=== PATIENT | male | born 1950 | race Caucasian/White ===

== ENCOUNTER → 2019-04-16 | Outpatient (CLI) | payer MEDICARE ==
[~2019-04-16] MED LIST: SINGULAIR10 MG PO; SYNTHROID88 MCG PO
--- NOTE | 2019-04-16 10:26 | Diagnostic Imaging Report ---
MRI of the right femur without contrast. MRI of the left femur without contrast History: Right and left hamstring muscle strain. Trauma. Pain worse with running. Decreased range of motion Technique: Multiplanar multisequence MRI of the right femur. Multiplanar multisequence MRI of the left femur. Comparison: None Findings: Mild right insertional hamstring tendinosis with minimal adjacent hamstring muscular edema likely due to a mild right and left hamstring muscle strain. No full-thickness tear or retraction. The remainder of the visualized muscles are normal in size, signal intensity and morphology. No acute fracture, subluxation or avascular necrosis. Scattered degenerative change. The visualized neurovascular bundles are intact. Impression: Mild right insertional hamstring tendinosis with minimal adjacent hamstring muscular edema likely due to a mild right and left hamstring muscle strain. No full-thickness tear or retraction. Signed by: Dr. Montana Fernandez M.D. on 04/16/2019 10:23 AM
== END ==
LOC: MRI 07:20
PROVIDERS: ATTEND Orthopaedic Surgery
DX: S76.811A Strain of other specified muscles, fascia and tendons at thigh level, right thigh, initial encounter (principal); S76.812A Strain of other specified muscles, fascia and tendons at thigh level, left thigh, initial encounter

== ENCOUNTER 2019-12-28 11:10 | Inpatient (IN) | payer MEDICARE ==
[~2019-12-28] VITALS: Ht 170.2 cm; Wt 65.8 kg
[~2019-12-28 11:10] MED LIST changes: +AMBIEN5 MG PO
[2019-12-28] MEDS ORDERED: SODIUM CHLORIDE 0.9% 1000ML 1,000 ML IV STA (11:25)
[2019-12-28] MEDS ORDERED: ASPIRIN 81 MG CHEW TAB PO ONE (11:30)
--- OUTSIDE RECORDS SUMMARY | 2019-12-28 12:03 | XMS REPORT | Continuity of Care Document ---
Author Author [facility] t Organization [facility] Address [address] [place] [address] Phone Unavailable Care Team Providers Care Eligibility Supervisor Name Role Phone KAREN IDLL Attphys Unavailable Sean ZULUAGA Attphys Unavailable Problems This patient has no known problems. Allergies, Adverse Reactions, Alerts This patient has no known allergies or adverse reactions. Medications This patient has no known medications. Procedures This patient has no known procedures. Results Test Description Test Time Test Comments Results Result Comments Source CHEST 2 VIEWS 2019-05-16 12:37:00 [facility] [address] [place] [address] Patient Name: JOSUE VENCES MR #: [id number] : 1950 Age/Sex: 69/M Req #: [id number] Adm Physician: Ordered by: KAREN DILL DPM Report #: [id number] Location: OR Room/Bed: Procedure: [id number] DX/CHEST 2 VIEWS Exam Date: 05/16/19 Exam Time: 1110 REPORT STATUS: Signed Chest, PA and lateral. History: Preoperative evaluation for foot surgery. Comparison: None available. Discussion: The cardiomediastinal silhouette and pulmonary vasculature are within normal limits. The lungs are clear without evidence of consolidation or effusion. There are no acute osseous abnormalities. Patient is status post ACDF. IMPRESSION: No acute cardiopulmonary abnormality. Signed by: Jim Milner MD on 05/16/2019 12:38 PM Dictated By: JIM MILENR MD 1238 Transcribed By: KHALIF on 05/16/19 1238 COPY TO: DILLKAREN CAPORashid MRI FEMUR LEFT WO 2019-04-16 09:31:00 [place] [address] Patient Name: JOSUE VENCES MR #: [id number] : 1950 Age/Sex: 68/M Req #: [id number] Adm Physician: Ordered by: LEENA ZULUAGA DO Report #: [id number] Location: MRI Room/Bed: Procedure: [id number] MRI/MRI FEMUR LEFT WO Exam Date: Exam Time: REPORT STATUS: Signed MRI of the right femur without contrast. MRI of the left femur without contrast History: Right and left hamstring muscle strain. Trauma. Pain worse with running. Decreased range of motion Technique: Multiplanar multisequence MRI of the right femur. Multiplanar multisequence MRI of the left femur. Comparison: None Findings: Mild right insertional hamstring tendinosis with minimal adjacent hamstring muscular edema likely due to a mild right and left hamstring muscle strain. No full-thickness tear or retraction. The remainder of the visualized muscles are normal in size, signal intensity and morphology. No acute fracture, subluxation or avascular necrosis. Scattered degenerative change. The visualized neurovascular bundles are intact. Impression: Mild right insertional hamstring tendinosis with minimal adjacent hamstring muscular edema likely due to a mild right and left hamstring muscle strain. No full- thickness tear or retraction. Signed by: Dr. Montana Fernandez M.D. on 04/16/2019 10:23 AM Dictated By: MONTANA FERNANDEZ MD, MD 1023 Transcribed By: KHALIF on 04/16/19 1023 COPY TO: LEENA ZULUAGA DO MRI FEMUR RIGHT WO 2019-04-16 09:31:00 [place] [address] Patient Name: JOSUE VENCES MR #: [id number] : 1950 Age/Sex: 68/M Req #: [id number] Adm Physician: Ordered by: LEENA ZULUAGA DO Report #: [id number] Location: MRI Room/Bed: Procedure: [id number] MRI/MRI FEMUR RIGHT WO Exam Date: Exam Time: REPORT STATUS: Signed MRI of the right femur without contrast. MRI of the left femur without contrast History: Right and left hamstring muscle strain. Trauma. Pain worse with running. Decreased range of motion Technique: Multiplanar multisequence MRI of the right femur. Multiplanar multisequence MRI of the left femur. Comparison: None Findings: Mild right insertional hamstring tendinosis with minimal adjacent hamstring muscular edema likely due to a mild right and left hamstring muscle strain. No full-thickness tear or retraction. The remainder of the visualized muscles are normal in size, signal intensity and morphology. No acute fracture, subluxation or avascular necrosis. Scattered degenerative change. The visualized neurovascular bundles are intact. Impression: Mild right insertional hamstring tendinosis with minimal adjacent hamstring muscular edema likely due to a mild right and left hamstring muscle strain. No full- thickness tear or retraction. Signed by: Dr. Montana Fernandez M.D. on 04/16/2019 10:23 AM Dictated By: MONTANA FERNANDEZ MD, MD 1023 Transcribed By: KHALIF on 04/16/19 1023 COPY TO: LEENA ZULUAGA DO
[2019-12-28 12:11] LABS: BASOPHILS # (AUTO) 0.1 (0.0-0.1); BASOPHILS % 0.5 % (0.0-1.0); EOSINOPHILS # (AUTO) 0.3 (0.0-0.4); EOSINOPHILS % 1.9 % (0.0-6.0); HEMATOCRIT 40.5 % (38.2-49.6); HEMOGLOBIN 13.7 g/dL (14.0-18.0); LYMPHOCYTES # (AUTO) 2.5 (1.0-3.2); LYMPHOCYTES % 16.9 % (18.0-39.1); MEAN CORPUSCULAR HEMOGLOBIN 32.9 pg (28-32); MEAN CORPUSCULAR HGB CONC 33.8 g/dL (31-35); MEAN CORPUSCULAR VOLUME 97.4 fL (81-99); MONOCYTES # (AUTO) 0.8 (0.2-0.8); MONOCYTES % 5.3 % (4.4-11.3); NEUTROPHILS # (AUTO) 10.9 (2.1-6.9); NEUTROPHILS % 74.9 % (38.7-80.0); PLATELET COUNT 253 x10e3/uL (140-360); RED BLOOD COUNT 4.16 x10e6/uL (4.3-5.7); RED CELL DISTRIBUTION WIDTH 12.5 % (11.7-14.4)
[2019-12-28 12:22] LABS: INR 0.91; PROTHROMBIN TIME 12.7 seconds (11.9-14.5)
[2019-12-28 12:23] LABS: PARTIAL THROMBOPLASTIN TIME 25.6 seconds (23.8-35.5)
[2019-12-28 12:35] LABS: ALBUMIN 3.7 g/dL (3.5-5.0); ANION GAP 17.2 mmol/L (8-16); CALCIUM 9.2 mg/dL (8.4-10.2); CREATININE, SERUM 1.77 mg/dL (0.72-1.25); MAGNESIUM 2.6 MG/DL (1.3-2.1); POTASSIUM 4.2 mmol/L (3.5-5.1)
[2019-12-28 12:42] LABS: CREATINE KINASE MB 0.9 ng/mL (0-5.0)
--- NOTE | 2019-12-28 13:10 | Emergency Department Note ---
History of Present Illnes History of Present Illness Chief Complaint: Chest Pain History of Present Illness This is a 69 year old male 30 MIN AGO WHILE GETTING READY TO TAKE A SHOWER HE BEGAN HAVING LEFT SIDE CHEST PAIN, NON-RADIATING, POSITIVE . ON THE WAY HERE HE FELT DIZZY, PASSED OUT IN PASSENGER SEAT. WHEN HE AWOKE, HE FELT BETTER. Historian: Patient Arrival Mode: Car Additional Treatment IT INTERN: NONE Research Intern Required: No Onset (how long ago): minute(s) Location: LEFT CHEST Quality: TIGHT Radiation: Reports non-radiation Severity: severe Onset quality: sudden Timing of current episode: constant Progression: improving Chronicity: new Context: Denies recent illness Relieving factors: none Exacerbating factors: none Associated symptoms: Reports denies other symptoms Treatments prior to arrival: none Past Medical/Family History Physician Review I have reviewed the patient's past medical and family history. Any updates have been documented here. Past Medical History Recent Fever: No Clinical Suspicion of Infectio: No New/Unexplained Change in Ment: No Past Medical History: Hypertension, Hypothyroidism Other Medical History: PROSTATE Other Surgery: CERVICAL C-/ "METAL PLATES" CERVICAL 10/13 Social History Smoking Cessation: Never Smoker Counseling Performed: No Alcohol Use: None Any Illegal Drug Use: No TB Exposure/Symptoms: No Physically hurt or threatened: No Family History Family history of heart diseas: No Other Last Tetanus: [place] Any Pre-Existing Lines (PICC,: No Review of Systems Review of Systems Constitutional: Reports no symptoms EENTM: Reports no symptoms Cardiovascular: Reports as per HPI Respiratory: Reports as per HPI Gastrointestinal: Reports no symptoms Genitourinary: Reports no symptoms Musculoskeletal: Reports no symptoms Integumentary: Reports no symptoms Neurological: Reports no symptoms Psychological: Reports no symptoms Endocrine: Reports no symptoms Hematological/Lymphatic: Reports no symptoms Physical Exam Related Data Allergies: Coded Allergies: Penicillins (Verified Allergy, Unknown, 12/28/19) Triage Vital Signs Vital Signs Date Time Temp Pulse Resp B/P (MAP) Pulse Ox O2 Delivery O2 Flow Rate FiO2 12/28/19 11:18 97.7 59 18 101/71 100 Room Air Vital signs reviewed: Yes Physical Exam CONSTITUTIONAL Constitutional: Present well-developed, Present well-nourished HENT HENT: Present normocephalic, Present atraumatic, Present oropharynx clear/moist, Present nose normal HENT L/R: Present left ext ear normal, Present right ext ear normal EYES Eyes: Reports PERRL, Reports conjunctivae normal NECK Neck: Present ROM normal PULMONARY Pulmonary: Present effort normal, Present breath sounds normal CARDIOVASCULAR Cardiovascular: Present regular rhythm, Present heart sounds normal, Present capillary refill normal, Present normal rate GASTROINTESTINAL Abdominal: Present soft, Present nontender, Present bowel sounds normal GENITOURINARY Genitourinary: Present exam deferred SKIN Skin: Present warm, Present dry MUSCULOSKELETAL Musculoskeletal: Present ROM normal NEUROLOGICAL Neurological: Present alert, Present oriented x 3, Present no gross motor or sensory deficits PSYCHOLOGICAL Psychological: Present mood/affect normal, Present judgement normal Results Laboratory Result Diagram: 12/28/19 1137 12/28/19 1137 Laboratory Laboratory Tests Test 12/28/19 12:44 12/28/19 11:37 White Blood Count 14.54 x10e3/uL (4.8-10.8) Red Blood Count 4.16 x10e6/uL (4.3-5.7) Hemoglobin 13.7 g/dL (14.0-18.0) Hematocrit 40.5 % (38.2-49.6) Mean Corpuscular Volume 97.4 fL (81-99) Mean Corpuscular Hemoglobin 32.9 pg (28-32) Mean Corpuscular Hemoglobin Concent 33.8 g/dL (31-35) Red Cell Distribution Width 12.5 % (11.7-14.4) Platelet Count 253 x10e3/uL (140-360) Neutrophils (%) (Auto) 74.9 % (38.7-80.0) Lymphocytes (%) (Auto) 16.9 % (18.0-39.1) Monocytes (%) (Auto) 5.3 % (4.4-11.3) Eosinophils (%) (Auto) 1.9 % (0.0-6.0) Basophils (%) (Auto) 0.5 % (0.0-1.0) Neutrophils # (Auto) 10.9 (2.1-6.9) Lymphocytes # (Auto) 2.5 (1.0-3.2) Monocytes # (Auto) 0.8 (0.2-0.8) Eosinophils # (Auto) 0.3 (0.0-0.4) Basophils # (Auto) 0.1 (0.0-0.1) Absolute Immature Granulocyte (auto 0.07 x10e3/uL (0-0.1) Prothrombin Time 12.7 seconds (11.9-14.5) Prothromb Time International Ratio 0.91 Activated Partial Thromboplast Time 25.6 seconds (23.8-35.5) Sodium Level 138 mmol/L (136-145) Potassium Level 4.2 mmol/L (3.5-5.1) Chloride Level 99 mmol/L (98-107) Carbon Dioxide Level 26 mmol/L (22-29) Anion Gap 17.2 mmol/L (8-16) Blood Urea Nitrogen 23 mg/dL (7-26) Creatinine 1.77 mg/dL (0.72-1.25) Estimat Glomerular Filtration Rate 38 ML/MIN (60-) BUN/Creatinine Ratio 13 (6-25) Glucose Level 155 mg/dL (74-118) Calcium Level 9.2 mg/dL (8.4-10.2) Magnesium Level 2.6 MG/DL (1.3-2.1) Total Bilirubin 0.7 mg/dL (0.2-1.2) Aspartate Amino Transf (AST/SGOT) 22 IU/L (5-34) Alanine Aminotransferase (ALT/SGPT) 29 IU/L (0-55) Alkaline Phosphatase 60 IU/L (40-150) Creatine Kinase 22 IU/L (30-200) Creatine Kinase MB 0.90 ng/mL (0-5.0) Troponin I 0.051 ng/mL (0-0.300) B-Type Natriuretic Peptide 11.0 pg/mL (0-100) Total Protein 7.3 g/dL (6.5-8.1) Albumin 3.7 g/dL (3.5-5.0) Globulin 3.6 g/dL (2.3-3.5) Albumin/Globulin Ratio 1.0 (0.8-2.0) Lab results reviewed: Yes Imaging Imaging results reviewed: Yes Procedures 12 Lead ECG Interpretation ECG Interpretation : ECG: ECG 1 Research Intern: Interpreted by ED physician Date: Dec 28, 2019 Time: 11:18 Rhythm: sinus bradycardia Rate: bradycardia (85) QRS axis: normal Conduction: right bundle branch block ST segments normal: Yes T wave inversion: aVR, V1 Clinical Impression: abnormal ECG Assessment & Plan Medical Decision Making MDM CP WITH SOB THEN SYNCOPE IN CAR WHEN DROVE HIM HERE - CBC, CHEM, ECG, CARDIACS, CXR, D-DIMER- R/O STEMI/NSTEMI, DYSRHYTHMIA, ELECTROLYTE ABNL, RENAL INSUFF - ADMIT Reassessment Reassessment ADMIT TO Ramiro PISANO, CONSULT TO CHRISTOPHER Assessment & Plan Final Impression: (1) Syncope (2) Chest pain (3) Renal insufficiency Depart Disposition: ADMITTED Last Vital Signs Date Time Temp Pulse Resp B/P (MAP) Pulse Ox O2 Delivery O2 Flow Rate FiO2 12/28/19 11:18 97.7 59 18 101/71 100 Room Air Home Meds Reported Medications Zolpidem Tartrate (AMBIEN) 5 Mg Tablet, 5 MG PO HS, #30 TAB 05/16/19 Levothyroxine Sodium (SYNTHROID) 88 Mcg Tablet, 88 MCG PO 0630, #30 TAB 07/22/16 Medications in the ED Sodium Chloride 1,000 ml @ 0 mls/hr Q0M STAT IV Last administered on 12/28/19at 11:52; Admin Dose 999 MLS/HR; Start 12/28/19 at 11:25; Stop 12/28/19 at 11:28; Status DC Aspirin 81 mg NOW ONCE PO Last administered on 12/28/19at 11:52; Admin Dose 81 MG; Start 12/28/19 at 11:30; Stop 12/28/19 at 11:31; Status DC YOVANY BENNETT MD Dec 28, 2019 13:10
[2019-12-28] MEDS ORDERED: HEPARIN SOD (PORCINE) 1000 UNIT/ML SDV IV ONE (13:15)
[2019-12-28] MEDS ORDERED: SODIUM CHLORIDE 0.9% 50ML 50 ML ONE (13:44)
[2019-12-28] MEDS ORDERED: IOPAMIDOL 370 MG/ML 200 ML INFUS..BTL INJ ONE (13:44)
[2019-12-28] MEDS ORDERED: ONDANSETRON HCL INJ 2MG/ML 2ML 2 MG/ML VIAL IV PRN (14:15)
[2019-12-28] MEDS: SODIUM CHLORIDE 0.9% 1000ML 1,000 ML IV SCH (14:15)
--- OUTSIDE RECORDS SUMMARY | 2019-12-28 14:15 | XMS REPORT | Continuity of Care Document ---
Author Author [facility] t Organization [facility] Address [address] [place] [address] Phone Unavailable Care Team Providers Care Load Builder Name Role Phone KAREN DILL Attphys Unavailable Sean ZULUAGA Attphys Unavailable Problems This patient has no known problems. Allergies, Adverse Reactions, Alerts This patient has no known allergies or adverse reactions. Medications This patient has no known medications. Procedures This patient has no known procedures. Results Test Description Test Time Test Comments Results Result Comments Source CHEST 2 VIEWS 2019-05-16 12:37:00 [facility] [address] [place] [address] Patient Name: JOSUE VENCES MR #: [id number] : 1950 Age/Sex: 69/M Req #: [id number] Adm Physician: Ordered by: KAREN DILL DPM Report #: [id number] Location: OR Room/Bed: Procedure: [id number] DX/CHEST 2 VIEWS Exam Date: 05/16/19 Exam [...] on 05/16/2019 12:38 PM Dictated By: JIM MILNER MD 1238 Transcribed By: KHALIF on 05/16/19 1238 COPY TO: DILLKAREN CAPORashid MRI FEMUR LEFT WO 2019-04-16 09:31:00 [place] [address] Patient Name: JOSUE VENCES MR #: [id number] : 1950 Age/Sex: 68/M Req #: [id number] Adm Physician: Ordered by: LEENA ZULUAGA DO Report #: [id number] Location: MRI Room/Bed: Procedure: [id number] MRI/MRI FEMUR LEFT WO Exam Date: Exam [...] DO MRI FEMUR RIGHT WO 2019-04-16 09:31:00 [place] [address] Patient Name: JOSUE VENCES MR #: [id number] : 1950 Age/Sex: 68/M Req #: [id number] Adm Physician: Ordered by: LEENA ZULUAGA DO Report #: [id number] Location: MRI Room/Bed: Procedure: [id number] MRI/MRI FEMUR RIGHT WO Exam Date: Exam [...]
[2019-12-28] MEDS: HEPARIN 25,000 UNIT 1,200 UNIT in DEXTROSE 5% 250ML 250 ML IV SCH (14:25)
--- NOTE | 2019-12-28 14:32 | Diagnostic Imaging Report ---
CT BRAIN WO HISTORY: Syncope COMPARISON: Head CT 07/22/2016 Technique: Noncontrast axial scans were obtained from skull base to the vertex. Coronal and sagittal reconstructions obtained from the axial data. One or more of the following dose reduction techniques were used: Automated exposure control, adjustment of the mA and/or kV according to patient size, and/or utilization of iterative reconstruction technique. DISCUSSION: Scalp/Skull: Small linear subcutaneous hyperdensity is seen in the right temporal scalp. Otherwise, unremarkable. Brain sulci: Mildly prominent. Ventricles: Compensatory dilatation. Extra-axial spaces: No masses or fluid collections. Carotid siphon calcifications are present. Parenchyma: No abnormal densities. No masses, hemorrhage, or large vascular territory acute infarct. Dural sinuses: No abnormal densities. Sellar/Suprasellar region: Intact. Skull base: Intact. Incidental findings: None. IMPRESSION: 1. No acute intracranial abnormalities. 2. Mild generalized cerebral volume loss. Signed by: Dr. Marty Orozco M.D. on 12/28/2019 2:29 PM
--- NOTE | 2019-12-28 14:35 | Diagnostic Imaging Report ---
EXAM: CT Chest WITH contrast- Pulmonary Embolism Protocol INDICATION: Shortness of breath, syncope COMPARISON: Chest radiograph of 05/16/2019 TECHNIQUE: Chest was scanned utilizing a multidetector helical scanner from the lung apex through the level of the diaphragm after administration of IV contrast. Thin section reconstructions were obtained with special concentration on the pulmonary arteries. Coronal and sagittal reformations were obtained. Pulmonary embolism protocol was performed. IV CONTRAST: 100 cc of Isovue 370 RADIATION DOSE: Total DLP: 549.5 mGy*cm Dose modulation, iterative reconstruction, and/or weight based adjustment of the mA/kV was utilized to reduce the radiation dose to as low as reasonably achievable. COMPLICATIONS: None FINDINGS: LINES/ TUBES: None. PULMONARY ARTERIES: No filling defect is identified within the pulmonary arteries and their branches. Main pulmonary artery measures 2.0 cm in diameter. No right heart strain. LUNGS AND AIRWAYS: The central airways are patent. No focal consolidation or pulmonary edema. PLEURA: The pleural spaces are clear. HEART AND MEDIASTINUM: The thyroid gland is normal. No mediastinal, hilar or axillary lymphadenopathy. The heart is normal in size.. There is no pericardial effusion. Minimal scattered aortic and coronary artery atherosclerotic calcifications. UPPER ABDOMEN: No acute findings in the upper abdomen BONES: No acute osseous injury. No suspicious lytic or blastic lesions. Partially visualized cervical spine fusion hardware. SOFT TISSUES: Unremarkable. IMPRESSION: No acute findings in the thorax. Specifically, no pulmonary embolism. Signed by: Carolynn Tyler MD on 12/28/2019 2:32 PM
[2019-12-28] MEDS: FAMOTIDINE 20 MG/2 ML VIAL IV SCH ×2 (15:00→20:46)
[2019-12-28 15:41] VITALS: BP_SYST 140; BP_SYST 150; BP_DIAS 73; BP_DIAS 83
[2019-12-28] MEDS ORDERED: SYNTHROID100 MCG PO (15:57)
[2019-12-28] MEDS ORDERED: VALIUM2 MG (15:58)
[2019-12-28 16:24] VITALS: BP 150/83
[2019-12-28 16:28] VITALS: BP 140/73
[2019-12-28 16:29] VITALS: BP 140/73
[2019-12-28 16:30] VITALS: BP 140/73
[2019-12-28] MEDS: ACETAMINOPHEN/CODEINE 300MG - 30MG TAB PO PRN ×2 (17:09→23:48)
[2019-12-28 18:31] LABS: CREATINE KINASE MB 2.6 ng/mL (0-5.0)
--- NOTE | 2019-12-28 19:50 | Consultation ---
DATE OF CONSULTATION: Cardiology Consultation REASON FOR CONSULTATION: Chest pain and history of syncope. HISTORY OF PRESENT ILLNESS: This is a 69-year-old man with a history of hypertension and hypothyroidism, who also has cervical disk disease, status post recent surgery, who presented to the emergency department with chest pain. The patient states that chest pain began a few hours prior to admission, located in the lower chest epigastric area without radiation, was moderate in intensity, progressively was persisted, which prompted him to seek medical attention. The patient then on his travel to the hospital, had a syncopal event due to the pain, lasted only a few seconds. No other symptoms of palpitations, shortness of breath, orthopnea, or prior syncopal events. REVIEW OF SYSTEMS: A 12-point review of system was conducted, is negative except as stated above in the HPI. PAST MEDICAL HISTORY: As stated above in the HPI. PAST SURGICAL HISTORY: Neck surgery. PAST FAMILY HISTORY: Noncontributory to current illness. ALLERGIES: PENICILLIN. MEDICATIONS: See medication reconciliation form. SOCIAL HISTORY: No illicit drug, alcohol, or tobacco use. PHYSICAL EXAMINATION: VITAL SIGNS: Temperature is 97.4, heart rate 55, respirations 18, blood pressure is 140/73, and oxygen saturation 98% on room air. GENERAL: Well appearing, well built, no apparent distress. Alert and oriented x3. HEAD: Normocephalic and atraumatic. EYES: The extraocular muscles are intact. Conjunctivae clear. NECK: No JVD. No bruits. CARDIOVASCULAR: Regular rate and rhythm. LUNGS: Clear to auscultation. ABDOMEN: Soft, nontender, and nondistended. EXTREMITIES: No clubbing, cyanosis, or edema. VASCULAR: 2+ pulses. SKIN: Warm, dry, and intact. NEUROLOGIC: No focal deficits noted. LABORATORY DATA: Reviewed. Troponin negative. White blood cell count is 14. Creatinine 1.77. BNP is 11. CT of the chest shows no pulmonary embolism with minimal scattered aortic and coronary artery atherosclerotic calcifications. A 12-lead electrocardiogram showed normal sinus rhythm and right bundle branch block. IMPRESSION: 1. Chest pain. 2. Syncope. 3. Right bundle branch block. 4. Bradycardia. 5. Chronic kidney disease. 6. Leukocytosis. 7. Coronary artery disease. RECOMMENDATIONS: Continue to trend cardiac troponins. His echocardiogram showed preserved left ventricular systolic function. There are no regional wall motion abnormalities. Maintain the patient on telemetry. We will check a carotid artery Doppler. If the patient rules out for myocardial infarction, the patient may be discharged from a cardiovascular standpoint with outpatient followup. DO LUCITA Wu/JAN /[id number]
[2019-12-28 20:00] VITALS: BP 131/68
--- NOTE | 2019-12-28 20:50 | NUR ---
Patients PTT is 102.4. Infusion has been held for 30 minutes and flow rate has been decreased to 10cc/hr. Will recheck PTT in 6 hours.
--- NOTE | 2019-12-28 21:18 | NUR ---
SPOKE WITH MD REGARDING SLEEPING MEDICATIONS. MD STATES CONTINUE SLEEPING MEDICATIONS.
[2019-12-28] MEDS: ZOLPIDEM TARTRATE 5 MG TAB PO SCH (22:23)
[2019-12-29] VITALS (9 sets, daily range): BP systolic 102–131; BP diastolic 65–78
[2019-12-29 02:34] LABS: CREATINE KINASE MB 2.1 ng/mL (0-5.0)
--- NOTE | 2019-12-29 02:40 | NUR ---
Heparin infusion has been resumed at 8.5cc/hr in accordance with heparin protocol. next PTT blood draw is at 0840am. will continue to monitor patient.
--- NOTE | 2019-12-29 02:41 | NUR ---
Patients PTT is 110.4. Infusion held for 30minutes.
[2019-12-29] MEDS: SODIUM CHLORIDE 0.9% 1000ML 1,000 ML IV SCH (03:11)
[2019-12-29] MEDS ORDERED: ALENDRONATE SOD70 MG PO (04:57)
[2019-12-29] MEDS ORDERED: OMEPRAZOLE40 MG PO (04:57)
[2019-12-29] MEDS ORDERED: CYMBALTA30 MG PO (04:57)
[2019-12-29] MEDS ORDERED: ASPIRIN81 MG PO (04:57)
[2019-12-29 05:59] LABS: BASOPHILS # (AUTO) 0.1 (0.0-0.1); BASOPHILS % 0.7 % (0.0-1.0); EOSINOPHILS # (AUTO) 0.3 (0.0-0.4); EOSINOPHILS % 2.4 % (0.0-6.0); HEMATOCRIT 35.2 % (38.2-49.6); HEMOGLOBIN 11.5 g/dL (14.0-18.0); LYMPHOCYTES # (AUTO) 3.7 (1.0-3.2); LYMPHOCYTES % 34.4 % (18.0-39.1); MEAN CORPUSCULAR HEMOGLOBIN 32.4 pg (28-32); MEAN CORPUSCULAR HGB CONC 32.7 g/dL (31-35); MEAN CORPUSCULAR VOLUME 99.2 fL (81-99); MONOCYTES # (AUTO) 0.9 (0.2-0.8); MONOCYTES % 8.7 % (4.4-11.3); NEUTROPHILS # (AUTO) 5.7 (2.1-6.9); NEUTROPHILS % 53.5 % (38.7-80.0); PLATELET COUNT 213 x10e3/uL (140-360); RED BLOOD COUNT 3.55 x10e6/uL (4.3-5.7); RED CELL DISTRIBUTION WIDTH 12.4 % (11.7-14.4)
[2019-12-29 06:27] LABS: ALBUMIN 3.1 g/dL (3.5-5.0); ANION GAP 13.4 mmol/L (8-16); CALCIUM 8.3 mg/dL (8.4-10.2); CHOL/HDL RATIO 4.8 (3.9-4.7); CREATININE, SERUM 1.35 mg/dL (0.72-1.25); POTASSIUM 4.4 mmol/L (3.5-5.1)
[2019-12-29] MEDS: ACETAMINOPHEN/CODEINE 300MG - 30MG TAB PO PRN ×3 (06:27→21:43)
--- NOTE | 2019-12-29 06:29 | NUR ---
patient is resting in bed. bed is in lowest position and call light is within reach.
--- NOTE | 2019-12-29 07:00 | NUR ---
BEDSIDE SHIFT REPORT RECEIVED FROM SKIMMER RN. PT DENIES NEEDS AT THIS TIME.
[2019-12-29] MEDS: FAMOTIDINE 20 MG/2 ML VIAL IV SCH ×2 (08:54→21:43)
[2019-12-29] MEDS: ASPIRIN 81 MG ENTERIC COATED PO SCH (08:55)
[2019-12-29 09:21] LABS: CREATINE KINASE MB 3.4 ng/mL (0-5.0)
--- NOTE | 2019-12-29 09:27 | NUR ---
PTT 106.1 AT THIS TIME. HEPARIN DRIP DECREASED BY 150 UNITS, FROM 850 UNITS TO 700 UNITS.
[2019-12-29] MEDS: ATORVASTATIN 20 MG TAB PO SCH (11:44)
--- NOTE | 2019-12-29 11:47 | History and Physical ---
CHIEF COMPLAINT: Chest pain. HISTORY OF PRESENT ILLNESS: This is a 69-year-old white man, who presents to [facility] with complaints of nonradiating retrosternal chest tightness. The patient states that on the day of admission, he experienced chest tightness as he was entering a shower. The patient states en route to the emergency room, he experienced a brief syncopal episode. The patient states that 3 weeks ago, he underwent a cardiac stress test, which was negative just prior to undergoing cervical spine surgery. The patient underwent successful cervical spine surgery 2 weeks ago. In the emergency room, the patient underwent a CT of the chest, which did not reveal any evidence of pulmonary embolism. The patient also underwent a brain CT in the emergency room, which was unremarkable. However, patient's initial troponin I was elevated at 0.902. Repeat troponin I was 0.565 and the third troponin I this morning was 0.494. The patient denies any chest pain. On admission, the patient's BUN and creatinine were 23 and 1.77 respectively. This morning, BUN and creatinine were 20 and 1.35 respectively. The patient's LDL cholesterol 126 mg/dL with HDL cholesterol 37 mg/dL. The patient's AST and ALT were 20 and 22 respectively. Once again, the patient is chest pain free at this time. A 12-lead EKG revealed right bundle branch block, otherwise unremarkable. The patient was already seen by Cardiology. The patient is currently on intravenous heparin drip. REVIEW OF SYSTEMS: GENERAL: Weight is stable. No fever or chills. HEENT: No headaches. No visual changes. CARDIOVASCULAR/RESPIRATORY: Nonradiating retrosternal chest tightness yesterday that lasts only few minutes. The patient did have a syncopal episode en route to the hospital. No cough. No shortness of breath. GI: No nausea associated with the chest discomfort. : No UTI or BPH symptoms. NEUROMUSCULAR: No limb weakness or numbness. ALLERGIES: PENICILLIN. PAST SURGICAL HISTORY: 1. Cervical spine surgery in 2009. 2. Repeat cervical spine surgery 2 weeks ago. 3. Right foot surgery in May 2019. FAMILY HISTORY: No family history of coronary artery disease. PAST MEDICAL HISTORY: 1. Stage 3 chronic kidney disease. 2. Hypothyroidism. 3. Anxiety disorder. 4. Insomnia. 5. GERD. 6. Osteoporosis. HOME MEDICATIONS: 1. Alendronate 70 mg daily (patient states he is not taking this medication). 2. Aspirin 81 mg daily. 3. Diazepam 2 mg daily as needed for anxiety. 4. Duloxetine 30 mg daily. 5. Levothyroxine 188 mcg daily. 6. Omeprazole 40 mg daily. 7. Zolpidem 5 mg at bedtime for insomnia. SOCIAL HISTORY: He is and lives with his . He is currently retired. No history of tobacco or alcohol use. PHYSICAL EXAMINATION: GENERAL: He is awake, alert, and fully oriented. He is slightly anxious. He is very pleasant and cooperative. VITAL SIGNS: Height 5 feet 7 inches, weight 145 pounds, BMI 22. Blood pressure is 118/70, pulse 52, respiratory rate 18, temperature 97.5, oxygen 100% on room air. INTEGUMENT: Skin is warm and dry. No pallor, jaundice, or diaphoresis. HEENT: Anicteric sclerae. Moist mucous membranes. NECK: Supple. In the posterior neck area, he has evidence of recent cervical spine surgery with Steri-Strips still in place. CARDIOVASCULAR: Distant heart sounds. Bradycardic rate, regular rhythm. LUNGS: No rales, no rhonchi or wheezes. ABDOMEN: Soft. Normal bowel sounds. Nontender. EXTREMITIES: No edema or deformity. NEUROLOGIC: Intact. DIAGNOSES: 1. Hfy-PJ-eumkhiut myocardial infarction. 2. Xowvm-nv-uilysfo renal insufficiency. 3. History of stage 3 chronic kidney disease. 4. Hypothyroidism. 5. Recent cervical spine surgery. 6. Bisphosphonate induced chest pain? PLAN: 1. Stop bisphosphonate therapy. 2. Discuss with Cardiology. 3. Continue intravenous fluids. 4. Follow renal function. 5. Continue oral aspirin. 6. Start statin therapy. 7. The patient will likely undergo a left heart catheterization in near future. I spent 45 minutes in the care of the patient. MD JESSE Morales/JAN /[id number] FCO
[2019-12-29] MEDS ORDERED: HEPARIN 25,000 UNIT DRIP IV ONE (12:25)
[2019-12-29] MEDS: HEPARIN 25,000 UNIT 1,200 UNIT in DEXTROSE 5% 250ML 250 ML IV SCH (12:36)
[2019-12-29] MEDS ORDERED: SODIUM CHLORIDE 0.9% 250ML 250 ML ONE (18:41)
--- NOTE | 2019-12-29 18:59 | Progress Note ---
DATE: Cardiology Progress Note SUBJECTIVE: The patient feels better. Some difficulty in word finding. No further chest pain. OBJECTIVE: VITAL SIGNS: Temperature is 97.5, heart rate ranges from 40 to 52, oxygen saturation is 100% on room air. Blood pressure is 131/74, and respirations are 16. GENERAL: Well-appearing, in no apparent distress. CARDIOVASCULAR: Bradycardic, regular rhythm. No murmurs. LUNGS: Diminished breath at bases. ABDOMEN: Soft, nontender, nondistended. EXTREMITIES: No edema. CARDIOVASCULAR MEDICATIONS: Reviewed. DIAGNOSTIC DATA: Echocardiogram showed preserved left ventricular systolic function. Carotid artery Doppler showed no significant obstructive disease. Telemetry monitoring shows sinus bradycardia. IMPRESSION: 1. Evu-PP-qgomxsyjm myocardial infarction. 2. Right bundle-branch block. 3. Bradycardia. 4. Chronic kidney disease. 5. Coronary artery disease by CT. 6. Syncope. RECOMMENDATIONS: The patient ruled in for myocardial infarction. Continue heparin and aspirin. Maintain the patient on telemetry. The patient continues to have word-finding difficulty. May consider checking MRI of the brain. The patient will require cardiac catheterization prior to discharge. Van Espinosa DO BM/MODL /[id number]
--- NOTE | 2019-12-29 19:20 | NUR ---
received report from day nurse. patient is in bed resting. bed is in lowest position and call light is within reach.
[2019-12-29] MEDS: ZOLPIDEM TARTRATE 5 MG TAB PO SCH (21:43)
[2019-12-30] VITALS (7 sets, daily range): BP systolic 103–131; BP diastolic 55–71
--- NOTE | 2019-12-30 01:58 | NUR ---
Patients PTT is therapeutic for a second time. PTT will be changed to daily in accordance with Heparin infusion policy.
[2019-12-30] MEDS: ACETAMINOPHEN/CODEINE 300MG - 30MG TAB PO PRN ×3 (05:18→22:00)
[2019-12-30 06:11] LABS: BASOPHILS # (AUTO) 0.1 (0.0-0.1); BASOPHILS % 0.7 % (0.0-1.0); EOSINOPHILS # (AUTO) 0.5 (0.0-0.4); EOSINOPHILS % 5.3 % (0.0-6.0); HEMATOCRIT 36.3 % (38.2-49.6); HEMOGLOBIN 11.8 g/dL (14.0-18.0); LYMPHOCYTES # (AUTO) 3.8 (1.0-3.2); LYMPHOCYTES % 42.6 % (18.0-39.1); MEAN CORPUSCULAR HEMOGLOBIN 32.1 pg (28-32); MEAN CORPUSCULAR HGB CONC 32.5 g/dL (31-35); MEAN CORPUSCULAR VOLUME 98.6 fL (81-99); MONOCYTES # (AUTO) 0.7 (0.2-0.8); MONOCYTES % 8.1 % (4.4-11.3); NEUTROPHILS # (AUTO) 3.8 (2.1-6.9); NEUTROPHILS % 43.2 % (38.7-80.0); PLATELET COUNT 212 x10e3/uL (140-360); RED BLOOD COUNT 3.68 x10e6/uL (4.3-5.7); RED CELL DISTRIBUTION WIDTH 12.5 % (11.7-14.4)
[2019-12-30 06:23] LABS: ALBUMIN 3.1 g/dL (3.5-5.0); ANION GAP 13.9 mmol/L (8-16); CALCIUM 8.4 mg/dL (8.4-10.2); CREATININE, SERUM 1.55 mg/dL (0.72-1.25); POTASSIUM 4.9 mmol/L (3.5-5.1)
--- NOTE | 2019-12-30 06:27 | NUR ---
patient is resting in the bed comfortably
[2019-12-30 06:44] LABS: THYROID STIMULATING HORMONE 1.072 uIU/mL (0.350-4.940)
--- NOTE | 2019-12-30 07:00 | NUR ---
BEDSIDE SHIFT REPORT RECEIVED FROM NURSE COMPANION RN. PT DENIES NEEDS AT THIS TIME.
[2019-12-30] MEDS: ASPIRIN 81 MG ENTERIC COATED PO SCH (08:15)
[2019-12-30] MEDS: FAMOTIDINE 20 MG/2 ML VIAL IV SCH ×2 (08:15→21:33)
[2019-12-30] MEDS: SODIUM CHLORIDE 0.9% 1000ML 1,000 ML IV SCH ×2 (11:15→18:42)
--- NOTE | 2019-12-30 11:56 | Progress Note ---
DATE: 12/30/2019 CHIEF COMPLAINT/HISTORY OF PRESENT ILLNESS: This is a 69-year-old white man, whose primary treating diagnosis is yun-YB-buywdzte myocardial infarction and stage 3 chronic kidney disease. This morning, the patient was found to have a BUN and creatinine of 18 and 1.55 respectively. His troponin I yesterday was 0.494. The patient denies any chest pain or tightness. His TSH level is normal of 1.072. The patient's main complaint is his room is too cold. Also yesterday, he was found to have LDL cholesterol 126 mg/dL. Thus, he was started on atorvastatin 20 mg daily, which he is tolerating quite well. REVIEW OF SYSTEMS: As per HPI. PHYSICAL EXAMINATION: GENERAL: He is awake, alert, fluent, in no distress, very pleasant, cooperative with exam. VITAL SIGNS: Blood pressure is 122/62, pulse is 46, respiratory rate 18, temperature 97.8, and oxygen saturation 99% on room air. Height 5 feet 7 inches, weight 145 pounds, BMI 22. INTEGUMENT: Skin is warm and dry. No pallor, jaundice, or diaphoresis. HEENT: Anterior sclerae with moist mucous membranes NECK: Supple. CARDIOVASCULAR: Distant heart sounds. Bradycardic rate, regular rhythm. LUNGS: No rales. No rhonchi. No wheezes. ABDOMEN: Benign. EXTREMITIES: No edema or deformity. NEUROLOGICAL: Intact. DIAGNOSIS: 1. Oxh-RW-hmvaotkj myocardial infarction. 2. Stage 3 chronic kidney disease. 3. Recent cervical spine surgery. 4. Bradycardia. PLAN: 1. I discussed the plan with the patient's adult daughter and the patient. The patient will proceed with tentative left heart catheterization tomorrow. 2. We will start intravenous fluids at 125 mL an hour. 3. Follow renal function and electrolytes. 4. Continue aspirin and atorvastatin. I spent 30 minutes in the care of this patient. MD JESSE Morales/JAN /[id number] FCO
--- NOTE | 2019-12-30 12:47 | Progress Note ---
DATE: Cardiology progress note SUBJECTIVE: The patient is feeling better. Denies any chest pain or shortness of breath. OBJECTIVE: VITAL SIGNS: Temperature is 97.5, heart rate is 50, respirations are 19, blood pressure is 126/71, and oxygen saturation is 100% on room air. GENERAL: No apparent distress. Alert and oriented x3. CARDIOVASCULAR: Regular rhythm, bradycardic. No murmurs. LUNGS: Clear to auscultation. ABDOMEN: Soft, nontender, nondistended. EXTREMITIES: No clubbing, cyanosis, or edema. CARDIOVASCULAR MEDICATIONS: Reviewed include aspirin and heparin drip. LABORATORY DATA: Reviewed. Hemoglobin is 11.8, creatinine 1.55, and potassium 4.9. Peak troponin is 0.9. Telemetry monitoring shows sinus bradycardia. IMPRESSION: 1. Auo-EB-vfnplxiqo myocardial infarction. 2. Right bundle-branch block. 3. Bradycardia. 4. Chronic kidney disease. 5. Coronary artery disease by CT. 6. Syncope. RECOMMENDATIONS: The patient ruled in for acute myocardial infarction. Continue heparin and aspirin. Maintain the patient on telemetry given his bradycardia. The patient will require cardiac catheterization tomorrow. Continue intravenous fluids for renal protection. Van Espinosa DO BM/MODL /[id number]
[2019-12-30] MEDS: HEPARIN 25,000 UNIT 1,200 UNIT in DEXTROSE 5% 250ML 250 ML IV SCH (13:46)
--- NOTE | 2019-12-30 19:42 | NUR ---
received report. patient is resting in the bed. bed is in the lowest position and call light is within reach. will continue to monitor patient.
[2019-12-30] MEDS: ATORVASTATIN 20 MG TAB PO SCH (21:33)
[2019-12-30] MEDS: ZOLPIDEM TARTRATE 5 MG TAB PO SCH (21:33)
[2019-12-31] VITALS (9 sets, daily range): BP systolic 109–145; BP diastolic 61–77
[2019-12-31] MEDS: SODIUM CHLORIDE 0.9% 1000ML 1,000 ML IV SCH ×3 (03:27→18:45)
[2019-12-31] MEDS: ACETAMINOPHEN/CODEINE 300MG - 30MG TAB PO PRN ×3 (04:07→20:05)
[2019-12-31 05:29] LABS: BASOPHILS # (AUTO) 0.1 (0.0-0.1); BASOPHILS % 0.6 % (0.0-1.0); EOSINOPHILS # (AUTO) 0.4 (0.0-0.4); EOSINOPHILS % 4.9 % (0.0-6.0); HEMATOCRIT 33.5 % (38.2-49.6); HEMOGLOBIN 11.6 g/dL (14.0-18.0); LYMPHOCYTES # (AUTO) 3.2 (1.0-3.2); LYMPHOCYTES % 38.4 % (18.0-39.1); MEAN CORPUSCULAR HEMOGLOBIN 34.3 pg (28-32); MEAN CORPUSCULAR HGB CONC 34.6 g/dL (31-35); MEAN CORPUSCULAR VOLUME 99.1 fL (81-99); MONOCYTES # (AUTO) 0.9 (0.2-0.8); MONOCYTES % 10.2 % (4.4-11.3); NEUTROPHILS # (AUTO) 3.8 (2.1-6.9); NEUTROPHILS % 45.5 % (38.7-80.0); PLATELET COUNT 180 x10e3/uL (140-360); RED BLOOD COUNT 3.38 x10e6/uL (4.3-5.7); RED CELL DISTRIBUTION WIDTH 12.6 % (11.7-14.4)
[2019-12-31 05:51] LABS: ALBUMIN/GLOBULIN RATIO 1.1 (0.8-2.0); CALCIUM 7.8 mg/dL (8.4-10.2); CREATININE, SERUM 1.45 mg/dL (0.72-1.25)
--- NOTE | 2019-12-31 06:31 | NUR ---
patient is resting in the bed. bed is in lowest position and call light is within reach.
--- NOTE | 2019-12-31 07:05 | NUR ---
bedside shift report received from PM nurse. pt awake, alert, no complaints at this time; in stable condition.
[2019-12-31] MEDS ORDERED: MIDAZOLAM HCL 2 MG/2 ML VIAL ONE (10:31)
[2019-12-31] MEDS ORDERED: HEPARIN SOD/SOD CHLORIDE 2,000 ML ONE (10:31)
[2019-12-31] MEDS ORDERED: LIDOCAINE HCL 2% LOCAL 20 ML VIAL ONE (10:31)
[2019-12-31] MEDS ORDERED: IOPAMIDOL 370 MG/ML 200 ML INFUS..BTL INJ ONE (10:31)
[2019-12-31] MEDS ORDERED: FENTANYL CITRATE/PF 100MCG/2 ML INJ ONE (10:31)
[2019-12-31] MEDS ORDERED: SODIUM CHLORIDE 0.9% 1000ML 1,000 ML ONE (10:32)
--- NOTE | 2019-12-31 10:34 | NUR ---
pt leaving for angiogram; left in stable condition.
--- NOTE | 2019-12-31 11:15 | NUR ---
REPORT FROM CHIEF ENGINEER DRILLING AND RECOVERY: WENT RIGHT GROIN; NO FIX. MINX CLOSURE, DEPLOYED SUCCESSFULLY. PT RECEIVED 1 VERSED AND 25 FENTANYL. LAST VITALS: BP 161/81, HR 69, RR 16, O2 100% ON 2L.
--- NOTE | 2019-12-31 11:42 | NUR ---
PT RETURNED FROM CATALOG LIBRARY ASSISTANT. PT'S HEPARIN DRIP WAS PAUSED FOR PROCEDURE. MD ORDERED FLUIDS AT 75 ML/HR FOR 500, BEDREST FOR 2 HOURS.PT AWAKE, ALERT, IN STABLE CONDITION.
--- NOTE | 2019-12-31 12:02 | NUR ---
Dr. Van Esipnosa at bedside. he explained to pt findings from cardiac cath; states pt needs CABG and will be transferred to [facility]. pt agrees with plan. pt has only one IV access at this time. MD states to give pt ordered fluids then restart Heparin drip in 4 hours.
[2019-12-31] MEDS: ASPIRIN 81 MG ENTERIC COATED PO SCH (12:22)
[2019-12-31] MEDS: FAMOTIDINE 20 MG/2 ML VIAL IV SCH ×2 (12:25→20:05)
--- NOTE | 2019-12-31 12:33 | Progress Note ---
DATE: Cardiology Progress Note SUBJECTIVE: The patient is status post heart catheterization. No chest pain. OBJECTIVE: VITAL SIGNS: Temperature is 98.2, heart rate 45, respirations 18, blood pressure is 139/61, and oxygen saturation 99% on room air. GENERAL: Well appearing, no apparent distress. CARDIOVASCULAR: Bradycardic. Regular rhythm. LUNGS: Clear to auscultation. ABDOMEN: Soft, nontender, and nondistended. EXTREMITIES: No clubbing, cyanosis, or edema. LABORATORY DATA: Reviewed. Hemoglobin 11.6. Creatinine 1.45. Peak troponin was 0.9. Albumin 3. TSH is 1.072. Telemetry monitoring was personally reviewed, shows sinus bradycardia with right bundle branch block. A 2D echocardiogram showed preserved left ventricular systolic function with an ejection fraction of 55% to 60% with impaired LV relaxation. Left ventriculography showed an ejection fraction of 65% to 70% Coronary angiography showed severe multivessel coronary artery disease involving the distal left main, left anterior descending, left circumflex, obtuse marginals 1 and 2, and right coronary artery. Carotid artery Doppler showed no significant obstructive carotid disease. IMPRESSION: 1. Reh-VP-vioniizpm myocardial infarction. 2. Right bundle branch block. 3. Bradycardia. 4. Multivessel coronary artery disease. 5. Chronic kidney disease. 6. Hypoalbuminemia. 7. Syncope. RECOMMENDATIONS: The patient ruled in for acute myocardial infarction. His ejection fraction remained normal. Cardiac catheterization today revealed severe multivessel coronary artery disease. The patient will be placed on optimal medical therapy and will be transferred for coronary artery bypass graft surgery. DO LUCITA Wu/MODL /[id number]
--- NOTE | 2019-12-31 12:42 | NUR ---
ALISA REC'D ORDERS TO TRANSFER PT TO [facility] FOR CABG CM SPOKE WITH NURSE AMIRAH WHO STATES MOE LEBLANC HAS STARTED THIS TRANSFER CM CALLED AND SPOKE WITH MOE HANNAH WHO CONFIRMS SHE HAS INITIATED AND WILL COMPLETE TRANSFER FOR THIS PT
--- NOTE | 2019-12-31 13:00 | NUR ---
ASSESSMENT: Spiritual concern Pt hopeful concerning upcoming procedure. Pt looking to his roque for strength and assurance. Pt "thankful to God" for blessings. Intervention: Provided empathic listening. Facilitated conversation about roque. Provided prayer and information on how to reach resource center teacher, if needed. Outcome: No need to follow at this time. TOYA LO Linen Folder Spiritual Care Department O: [phone]
--- NOTE | 2019-12-31 14:39 | Operative Report ---
DATE OF PROCEDURE: 12/31/2019 SURGEON: Van Espinosa DO PROCEDURES PERFORMED: 1. Conscious sedation, 30 minutes. 2. Selective coronary angiography x2. 3. Left heart catheterization with left ventriculography. 4. Closure device. PREPROCEDURE DIAGNOSIS: Maf-BS-imaaogwxa myocardial infarction. POSTPROCEDURE DIAGNOSIS: Multivessel coronary artery disease. ESTIMATED BLOOD LOSS: Less than 20 mL. SPECIMENS REMOVED: None. PROCEDURE IN DETAIL: After informed consent was obtained, the patient was brought to the cardiac catheterization laboratory in a fasting and nonsedated state. Bilateral groins were prepped and draped in usual sterile fashion. A 2% lidocaine was infiltrated over the right anterior groin for local anesthesia. Using a micropuncture needle, the right common femoral was accessed via modified Seldinger technique and a 6-Tristanian sheath was placed. Next, the patient received fentanyl and midazolam administered by the slab inspector nurse and his physiologic and neurologic status was monitored by myself and slab inspector staff for 30 minutes. Next, selective angiography x2 and left heart catheterization along with left ventriculography were performed. Hemostasis was achieved via Mynx device. The patient tolerated the procedure well with no immediate complications, transported back to his room in stable condition. PROCEDURAL FINDINGS: 1. The distal left main has a severe 50% to 60% stenosis. This bifurcates into the LAD and left circumflex, which itself is very torturous. 2. The ostial to proximal to mid LAD has a long tubular diffuse severe 70-80% stenosis. There is then a mid focal 70% stenosis. The distal LAD is small to medium in caliber, however, there is no significant obstructive disease. 3. The left circumflex coronary artery is highly tortuous and is severely angulated in its takeoff. The ostial to proximal circumflex itself has a severe 80% stenosis. This stenosis then extends into the first obtuse marginal vessel which itself also has a 70-80% stenosis. The circumflex continues to provide three an additional obtuse marginal vessels. Obtuse marginal 2 has a proximal to mid 70-80% stenosis. The 3rd and 4th obtuse marginal vessels have luminal irregularities and are small in caliber. 4. The right coronary artery provides the posterior descending coronary artery. The proximal RCA itself is ectatic. The midportion of the RCA after the takeoff of an RV marginal has 60% to 70% stenosis. 5. Left ventricular end-diastolic pressure was 18 mmHg. No aortic valve gradient present upon pullback. Left ventriculography showed an ejection fraction of 65-70%. IMPRESSION: Multivessel coronary artery disease. RECOMMENDATIONS: The patient will be referred for bypass surgery. DO LUCITA Wu/MODL /[id number]
--- NOTE | 2019-12-31 17:40 | NUR ---
NEW IV ACCESS TO LEFT AC. RESTARTED HEPARIN DRIP. WILL RECHECK PTT IN 6 HOURS PER ELECTRIC SHAVER MECHANICCAMDEN SCHULZ'S RECOMMENDATION. PT AWAKE, ALERT, VSS. WILL CONTINUE TO MONITOR.
--- NOTE | 2019-12-31 17:49 | NUR ---
SPOKE WITH LINEN MANAGER WHO STATES PT HAS A ROOM. WILL STOP HEPARIN.
--- NOTE | 2019-12-31 19:00 | NUR ---
Bedside shift report given to PM nurse. ZEUS Nielson called report to Transfer Center for pt being transferred to [facility].
--- NOTE | 2019-12-31 19:13 | NUR ---
WALKING ROUNDS PERFORMED, RECEIVED PT LAYING FOWLERS IN BED, AAOX3, RR EVEN AND NON-LABORED, ON ROOM AIR. DRESSING TO (R) GROIN INTACT. BILATERAL STRONG PULSES NOTED TO FEET. STARTED HEPARIN DRIP TO (R) AC. LEFT PT LAYING SEMI FOWLERS IN BED, BED IN LOW LOCKED POSITION, SIDE RAILS UPX2, CALL LIGHT AND PHONE WITHIN REACH.
--- NOTE | 2019-12-31 19:30 | NUR ---
REPORT CALLED TO ELIO SCHULZ AT [facility]. PATIENT WILL BE TRANSFERRING TO ROOM 358. PATIENT AWARE AND SIGNED MOT PAPERWORK. OA TO ARRANGE TRANSPORT.
[2019-12-31] MEDS: ATORVASTATIN 20 MG TAB PO SCH (20:05)
--- NOTE | 2019-12-31 22:26 | NUR ---
PT TRANSPORTED BY EMS TO [facility]. PT IN STABLE CONDITION. BELONGINGS WITH PATIENT. EMS CONNECTED PT TO TRANSPORT TELEMETRY AND CONTINUED HEPARIN AT 7ML/HR.
--- NOTE | 2020-01-01 09:44 | NUR ---
Dictated DC summary: [id number]
--- NOTE | 2020-01-01 11:14 | Discharge Summary ---
ADMIT DIAGNOSES: 1. Angina. 2. Right bundle branch block. 3. Acute on chronic renal insufficiency. 4. Bradycardia. 5. Recent cervical spine surgery. DIAGNOSES ON DISCHARGE: 1. Status post left heart catheterization. 2. Multi-vessel coronary artery disease identified on left heart catheterization performed on December 30. 3. Non-ST elevated myocardial infarction, resolving. 4. Acute on chronic renal insufficiency, resolving. 5. Stage 3 chronic kidney disease. 6. Recent cervical spine surgery. 7. Hypertensive heart disease. 8. Chronic diastolic congestive heart failure. HOSPITAL COURSE: This is a 69-year-old white man, who was initially admitted to [facility] with diagnosis of angina. On admission he was also found to have right bundle branch block as well as bradycardia. Moreover, he was found to have acute on chronic renal insufficiency. The patient stated on admission that he did have history of chronic kidney disease. The patient's BUN and creatinine on admission was 23 and 1.77 respectively. The patient's renal function did improve with intravenous fluids during this hospitalization. On day of discharge, the patient's BUN and creatinine was 15 and 1.45 respectively. The patient was diagnosed with non-ST elevated myocardial infarction during this hospitalization. His troponin I got as high as 0.902. On day of discharge, his troponin I was 0.173. During this hospitalization, he was seen by Cardiology and Dr. Van Espinosa performed a left heart catheterization. The coronary angiogram performed during the left heart catheterization revealed severe multivessel coronary artery disease particularly in the LAD, left circumflex coronary artery and the RCA. He was found to have a preserved left ventricular ejection fraction of 65% to 70%. The patient underwent echocardiogram during this hospitalization that confirmed a left ventricular ejection fraction of 55% to 60%, but it did reveal diastolic filling pattern indicating impaired relaxation, thus he was diagnosed with diastolic heart failure. The patient's brief hospitalization was unremarkable. The decision was made to transfer the patient to [facility] where he could undergo tentative coronary artery bypass grafting. DISCHARGE MEDICATIONS: 1. Atorvastatin 20 mg at bedtime. 2. Acetaminophen with codeine #3 one pill every 6 hours p.r.n. pain. 3. Famotidine 20 mg intravenous every 12 hours. 4. Aspirin 81 mg daily. 5. Zolpidem 5 mg at bedtime for insomnia. FOLLOWUP INSTRUCTIONS: As previous stated the patient will transfer to [facility] where he will undergo tentative coronary artery bypass grafting by a cardiovascular surgeon namely Dr. Ramirez, on followup instructions as previously stated the patient transferred to [facility] where he will undergo tentative coronary artery bypass grafting by cardiovascular surgeon, Dr. Freddy Ramirez. MD JESSE Morales/JAN /[id number] MTDD
== END 2019-12-31 22:28 | disposition short-term general hospital (02) | DRG 281 ==
LOC: ER 11:25 → ERHOLD 14:01 → MED/SURG 15:12 → OBSVTOIN 12-29 10:51
PROC: 4A023N7 Measurement of Cardiac Sampling and Pressure, Left Heart, Percutaneous Approach (ICD-10-PCS; principal; 2019-12-31)
PROC: B211YZZ Fluoroscopy of Multiple Coronary Arteries using Other Contrast (ICD-10-PCS; 2019-12-31)
PROC: B2151ZZ Fluoroscopy of Left Heart using Low Osmolar Contrast (ICD-10-PCS; 2019-12-31)
DX: I21.4 Non-ST elevation (NSTEMI) myocardial infarction (principal); N17.9 Acute kidney failure, unspecified; I13.0 Hypertensive heart and chronic kidney disease with heart failure and stage 1 through stage 4 chronic kidney disease, or unspecified chronic kidney disease; I50.32 Chronic diastolic (congestive) heart failure; N18.3 Chronic kidney disease, stage 3 (moderate); I45.10 Unspecified right bundle-branch block; Z11.59 Encounter for screening for other viral diseases; I25.119 Atherosclerotic heart disease of native coronary artery with unspecified angina pectoris; E03.9 Hypothyroidism, unspecified; E88.09 Other disorders of plasma-protein metabolism, not elsewhere classified; M81.0 Age-related osteoporosis without current pathological fracture; G47.00 Insomnia, unspecified; F41.9 Anxiety disorder, unspecified
CPT/HCPCS: 36415; 70450; 71260; 80053; 80061; 82550; 82553; 82948; 83735; 83880; 84443; 84484; 85025; 85379; 85610; 85730; 93005; 93306; 93458; 93880; 99152; 99284; C1760; G0378; J1644; J2001; J2250; J3010; J7030; J7050; Q9967; U0002

== ENCOUNTER 2020-01-12 20:17 | Emergency (ER) | payer MEDICARE, OTHER ==
[~2020-01-12] VITALS: Ht 322.6 cm; Wt 65.8 kg
[~2020-01-12 20:17] MED LIST changes: +ALENDRONATE SOD70 MG PO; +ASPIRIN81 MG PO; +CYMBALTA30 MG PO; +OMEPRAZOLE40 MG PO; +SYNTHROID100 MCG PO; +VALIUM2 MG
[2020-01-12] MEDS ORDERED: CLINDAMYCIN HC300 MG PO (20:32)
[2020-01-12] MEDS ORDERED: ACIDOPHILUS1 EAC1 PO (20:34)
--- NOTE | 2020-01-12 20:51 | Emergency Department Note ---
History of Present Illnes History of Present Illness Chief Complaint: General Medicine Complaints History of Present Illness This is a 69 year old male arrived to the ED with redness over IV insertion site over the left AC. Pt states he had an IV placed in [place], mild pain but is concerned about streaking. Historian: Patient Arrival Mode: Car Onset (how long ago): day(s) Onset quality: gradual Duration (how long): day(s) Timing of current episode: constant Progression: worsening Chronicity: new Relieving factors: none Exacerbating factors: none Past Medical/Family History Physician Review I have reviewed the patient's past medical and family history. Any updates have been documented here. Past Medical History Recent Fever: No Clinical Suspicion of Infectio: No New/Unexplained Change in Ment: No Past Medical History: Hypothyroidism Other Medical History: insomnia, foot surgery, neck surgery X2 triple bypass surgery Other Surgery: CERVICAL C-2/6 "METAL PLATES" CERVICAL 10/13 Social History Smoking Cessation: Never Smoker Counseling Performed: No Alcohol Use: None Any Illegal Drug Use: No Physically hurt or threatened: No Other Last Tetanus: [place] Review of Systems Review of Systems Constitutional: Reports no symptoms EENTM: Reports no symptoms Cardiovascular: Reports no symptoms Respiratory: Reports no symptoms Gastrointestinal: Reports no symptoms Genitourinary: Reports no symptoms Musculoskeletal: Reports no symptoms Integumentary: Reports as per HPI Neurological: Reports no symptoms Psychological: Reports no symptoms Endocrine: Reports no symptoms Hematological/Lymphatic: Reports no symptoms Physical Exam Related Data Allergies: Coded Allergies: Penicillins (Verified Allergy, Unknown, 12/28/19) Triage Vital Signs Vital Signs Date Time Temp Pulse Resp B/P (MAP) Pulse Ox O2 Delivery O2 Flow Rate FiO2 01/12/20 20:24 98.4 81 20 113/81 99 Room Air Physical Exam CONSTITUTIONAL Constitutional: Present well-developed, Present well-nourished HENT HENT: Present normocephalic, Present atraumatic, Present oropharynx clear/moist, Present nose normal HENT L/R: Present left ext ear normal, Present right ext ear normal EYES Eyes: Reports PERRL, Reports conjunctivae normal NECK Neck: Present ROM normal PULMONARY Pulmonary: Present effort normal, Present breath sounds normal CARDIOVASCULAR Cardiovascular: Present regular rhythm, Present heart sounds normal, Present capillary refill normal, Present normal rate GASTROINTESTINAL Abdominal: Present soft, Present nontender, Present bowel sounds normal GENITOURINARY Genitourinary: Present exam deferred SKIN Skin: Present warm, Present dry, Present other (scant streaked redness over the left AC, ) MUSCULOSKELETAL Musculoskeletal: Present ROM normal NEUROLOGICAL Neurological: Present alert, Present oriented x 3, Present no gross motor or sensory deficits PSYCHOLOGICAL Psychological: Present mood/affect normal, Present judgement normal Assessment & Plan Medical Decision Making MDM 69 yo M arrived to the redness over the left AC, no erythema, no super-imposed cellulitis. Pt prophylactically covered with antibiotics. Assessment & Plan Final Impression: (1) Phlebitis after infusion Depart Disposition: HOME, SELF-CARE Last Vital Signs Date Time Temp Pulse Resp B/P (MAP) Pulse Ox O2 Delivery O2 Flow Rate FiO2 01/12/20 20:24 98.4 81 20 113/81 99 Room Air Home Meds Active Scripts Lactobacillus Acidophilus (ACIDOPHILUS) 1 Each Tab.chew, 1 TAB PO BID, #20 Prov:DONTRELL BUTLER, 01/12/20 Clindamycin Hcl (CLINDAMYCIN HCL) 300 Mg Capsule, 300 MG PO Q6H, #40 Prov:DONTRELL BUTLER, 01/12/20 Reported Medications Alendronate Sodium (ALENDRONATE SODIUM) 70 Mg Tablet, 70 MG PO DAILY 12/29/19 Omeprazole (OMEPRAZOLE) 40 Mg Capsule.dr, 60 MG PO DAILY 12/29/19 Duloxetine Hcl (CYMBALTA) 30 Mg Capsule.dr, 60 MG PO DAILY, #30 CAP 12/29/19 Aspirin (ASPIRIN) 81 Mg Tab.chew, 81 MG PO DAILY 12/29/19 Diazepam (VALIUM) 2 Mg Tablet 12/28/19 Levothyroxine Sodium (SYNTHROID) 100 Mcg Tab, 100 MCG PO 0600, #30 TAB 12/28/19 Zolpidem Tartrate (AMBIEN) 5 Mg Tablet, 5 MG PO HS, #30 TAB 05/16/19 Levothyroxine Sodium (SYNTHROID) 88 Mcg Tablet, 88 MCG PO 0630, #30 TAB 07/22/16 DONTRELL BUTLER, Jan 12, 2020 20:50
--- OUTSIDE RECORDS SUMMARY | 2020-01-12 21:04 | XMS REPORT | Continuity of Care Document ---
Author Author [facility] t Organization [facility] Address [address] [place] [address] Phone Unavailable Care Team Providers Care Social Worker Clinical Name Role Phone DO HUGH FAULKNER PCP PISANO, SOUHEIL Attphys Unavailable KAREN DILL Attphys Unavailable Sean ZULUAGA Attphys Unavailable PISANO, SOUHEIL Admphys Unavailable Payers Payer Name Policy Type Policy Number Effective Date Expiration Date Ramiro perdue [facility] Medicare Complete [id number] 2019 00:00:00 [facility] Problems Condition Name Condition Details Condition Category Status Onset Date Resolution Date Last Treatment Date Treating Clinician Comments Source Syncope Problem Active [facility] Chest pain Problem Active [facility] Renal insufficiency Problem Active [facility] Allergies, Adverse Reactions, Alerts Allergy Name Allergy Type Status Severity Reaction(s) Onset Date Inacti ve Date Treating Clinician Comments Source Penicillin Allergy to substance Active 2019-12-28 00:00:00 [facility] Social History Social Habit Start Date Stop Date Quantity Comments Source Sex Assigned At 1950 00:00:00 1950 00:[birth year]:00 Male [facility] Medications Ordered Medication Name Filled Medication Name Start Date Stop Da te Current Medication? Ordering Clinician Indication Dosage Frequency Signature (SIG) Comments Components Source Alendronate Sodium Alendronate Sodium Yes 70 Da noah [facility] Aspirin Aspirin Yes 81 Daily [facility] Diazepam (Valium) 2 Mg TABLET Diazepam (Valium) 2 Mg TABLET Ye s [facility] Duloxetine Hcl (Cymbalta) 30 Mg CAPSULE. Duloxetine Hcl (Cymbalta) 30 Mg CAPSULE. Yes 60 Daily [facility] Levothyroxine Sodium (Synthroid) 88 Mcg TABLET Levothy roxine Sodium (Synthroid) 88 Mcg TABLET Yes 88 Today At 6:30AM [facility] Levothyroxine Sodium (Synthroid) 100 Mcg TAB Levothyro xine Sodium (Synthroid) 100 Mcg TAB Yes 100 Today At 6:00AM [facility] Omeprazole Omeprazole Yes 60 Daily [facility] Zolpidem Tartrate (Ambien) 5 Mg TABLET Zolpidem Tartrate (Ambien ) 5 Mg TABLET Yes 5 Bedtime [facility] Levothyroxine Sodium (Synthroid) 88 Mcg TABLET Levothy roxine Sodium (Synthroid) 88 Mcg TABLET 2019-05-16 00:00:00 No 88 Daily [facility] Montelukast Sodium (Singulair) 10 Mg TABLET Montelukas t Sodium (Singulair) 10 Mg TABLET 2019-05-16 00:00:00 No 10 Daily [facility] Vital Signs Vital Name Observation Time Observation Value Comments Source Body Temperature 2019-12-31 20:00:00 98.8 [degF] [facility] BMI (Body Mass Index) 2019-12-28 16:19:00 22.7 kg/m2 [facility] Weight 2019-12-28 11:18:00 145 [lb_av] [facility] Procedures Procedure Date / Time Performed Performing Clinician Ricardo e Computed tomography of brain without radiopaque contrast 2019-12 00:00:00 [facility] Computed tomography of chest with contrast 2019-12-28 00:00:00 [facility] TIS TRNFR F/C/C/M/N/A/G/H/F 2019-05-18 00:00:00 [facility] REPAIR OF HAMMERTOE 2019-05-18 00:00:00 [facility] INCISION OF METATARSAL 2019-05-18 00:00:00 [facility] FUSION OF BIG TOE JOINT 2019-05-18 00:00:00 [facility] X-ray of chest, two views 2019-05-16 00:00:00 [facility] MRI non-joint region of extremity lower wo contrast 2019-04-16 0 0:00:00 [facility] Encounters Start Date/Time End Date/Time Encounter Type Admission Type Attendi RUST Care Department Encounter ID Source 2019-12-29 10:51:00 2019-12-31 22:28:00 Discharged Inpatient 1 JIE PISANO [facility] [id number] [facility] 2019-05-18 04:18:00 2019-05-18 04:18:00 Registered Surgical Day Car e 3 KAREN DILL [facility] [id number] [facility] 2019-04-16 06:20:00 2019-04-16 06:20:00 Registered Clinic 3 ZANLEENA [facility] [id number] [facility] Results Test Description Test Time Test Comments Results Result Comments Source Capillary blood glucose measurement by glucometer (mas s/volume) 2019-12-31 07:32:00 Test Item Bedside Glucose (test code = 20763-1) 86 70-120 Meter ID: [id number] Center[facility] leukocytes automated count (number/volume)2019-12-31 04:35:00* Test Item Value Reference Range Interpretation Comments White Blood Count (test code = 6690-2) 8.30 4.8-10.8 [facility] erythrocytes automated count (number/volume)2019-12-31 04:35:00* Test Item Value Reference Range Interpretation Comments Red Blood Count (test code = 789-8) 3.38 4.3-5.7 [facility] hemoglobin measurement (moles/volume)2019-12-31 04:35:00* Test Item Value Reference Range Interpretation Comments Hemoglobin (test code = 75367-9) 11.6 14.0-18.0 [facility] blood hematocrit (volume fraction)2019-12-31 04:35:00* Test Item Value Reference Range Interpretation Comments Hematocrit (test code = 4544-3) 33.5 38.2-49.6 [facility] erythrocyte mean corpuscular tkthnj0369-99-02 04:35:00* Test Item Value Reference Range Interpretation Comments Mean Corpuscular Volume (test code = 787-2) 99.1 81-99 [facility] erythrocyte mean corpuscular hemoglobin (mass per erythrocyte)2019-12-31 04:35:00* Test Item Value Reference Range Interpretation Comments Mean Corpuscular Hemoglobin (test code = 785-6) 34.3 28-32 [facility] erythrocyte mean corpuscular hemoglobin concentration measurement (mass/volume)2019-12-31 04:35:00* Test Item Value Reference Range Interpretation Comments Mean Corpuscular Hemoglobin Concent (test code = 786-4) 34.6 31-35 [facility] SouthRDW HzrPz-Vfr5772-95-24 04:35:00* Test Item Value Reference Range Interpretation Comments Red Cell Distribution Width (test code = 66620-6) 12.6 11.7 -14.4 [facility] platelet count (count/volume)2019-12-31 04:35:00* Test Item Value Reference Range Interpretation Comments Platelet Count (test code = 777-3) 180 140-360 [facility] blood segmented neutrophil count as percentage of total wqmtovgcuw3639-42-03 04:35:00* Test Item Value Reference Range Interpretation Comments Neutrophils (%) (Auto) (test code = 58397-9) 45.5 38.7-80.0 [facility] blood lymphocyte count as percentage ot total [id number] 04:35:00* Test Item Value Reference Range Interpretation Comments Lymphocytes (%) (Auto) (test code = 736-9) 38.4 18.0-39.1 [facility] South[facility] blood monocyte count as percentage of total djafkialhm7588-94-61 04:35:00* Test Item Value Reference Range Interpretation Comments Monocytes (%) (Auto) (test code = 5905-5) 10.2 4.4-11.3 [facility] blood eosinophil count as percentage of total gawtsgljyz4957-97-62 04:35:00* Test Item Value Reference Range Interpretation Comments Eosinophils (%) (Auto) (test code = 713-8) 4.9 0.0-6.0 [facility] SouthAutunc medical centered blood basophil count as percentage of total pcpphunbsu9137-99-03 04:35:00* Test Item Value Reference Range Interpretation Comments Basophils (%) (Auto) (test code = 706-2) 0.6 0.0-1.0 [facility] SouthFluoroscopic procedure less than one hour [id number] 04:35:00* Test Item Value Reference Range Interpretation Comments IM GRANULOCYTES % (test code = IM GRANULOCYTES %) 0.4 0.0- 1.0 [facility]Aut[facility] blood neutrophil count 2019-12-31 04:35:00* Test Item Value Reference Range Interpretation Comments Neutrophils # (Auto) (test code = 751-8) 3.8 2.1-6.9 [facility] lymphocytes count (number/volume) 2019-12-31 04:35:00* Test Item Value Reference Range Interpretation Comments Lymphocytes # (Auto) (test code = 65207-9) 3.2 1.0-3.2 [facility] monocytes automated count (number/volume)2019-12-31 04:35:00* Test Item Value Reference Range Interpretation Comments Monocytes # (Auto) (test code = 742-7) 0.9 0.2-0.8 [facility] blood eosinophil count 2019-12-31 04:35:00* Test Item Value Reference Range Interpretation Comments Eosinophils # (Auto) (test code = 711-2) 0.4 0.0-0.4 [facility] basophil count (count/volume)2019-12-31 04:35:00* Test Item Value Reference Range Interpretation Comments Basophils # (Auto) (test code = 704-7) 0.1 0.0-0.1 [facility] SouthFluoroscopic procedure less than one hour nuyldkmo8257-67-57 04:35:00* Test Item Value Reference Range Interpretation Comments Absolute Immature Granulocyte (auto (dany t code = Absolute Immature Granulocyte (auto) 0.03 0-0.1 [facility] SouthActivated partial thromboplastin time (aPTT) in platelet poor plasma by coagulation dfkbg3662-14-41 04:35:00* Test Item Value Reference Range Interpretation Comments Activated Partial Thromboplast Time (test code = 63255-0) 56.0 23.8-35.[address] sodium measurement (moles/volume)2019-12-31 04:35:00* Test Item Value Reference Range Interpretation Comments Sodium Level (test code = 2951-2) 141 136-[address] [facility] [facility] plasma potassium measurement (moles/volume)2019-12-31 04:35:00* Test Item Value Reference Range Interpretation Comments Potassium Level (test code = 2823-3) 4.0 3.5-5.[address] [facility] or plasma chloride measurement (moles/volume)2019-12-31 04:35:00* Test Item Value Reference Range Interpretation Comments Chloride Level (test code = 2075-0) 110 98-[address] [facility] [facility] or plasma carbon dioxide, total measurement (moles/volume)2019-12-31 04:35:00* Test Item Value Reference Range Interpretation Comments Carbon Dioxide Level (test code = 2028-9) 22 22-[address] [facility] or plasma anion [id number] 04:35:00* Test Item Value Reference Range Interpretation Comments Anion Gap (test code = 99121-2) 13.0 8-[address] [facility] [facility] [facility] or plasma urea nitrogen measurement (mass/volume)2019-12-31 04:35:00* Test Item Value Reference Range Interpretation Comments Blood Urea Nitrogen (test code = 3094-0) 15 7-[address] [facility] or plasma creatinine measurement (mass/volume)2019-12-31 04:35:00* Test Item Value Reference Range Interpretation Comments Creatinine (test code = 2160-0) 1.45 0.72-1.[address] [facility] [facility] or plasma urea nitrogen/creatinine mass hhhoa3306-30-37 04:35:00* Test Item Value Reference Range Interpretation Comments BUN/Creatinine Ratio (test code = 3097-3) 10 6-25 [facility] SouthEstimated glomerular filtration rate (GFR) miyofovtttcte6019-81-86 04:35:00* Test Item Value Reference Range Interpretation Comments Estimat Glomerular Filtration Rate (test code = 809083244) 48 >60 Ranges were taken from the National Kidney Disease Education Program and the [facility] literature.Reference ranges:60 or greater: Svpznb57-69 ( for 3 consecutive months): Chronic kidney disease 15 or less: Kidney failureCHRISTUS [facility] – SouthGlucose jwgxdotxdlr0879-03-33 04:35:00* Test Item Value Reference Range Interpretation Comments Glucose Level (test code = UMV6466) 83 74-[address] [facility] or plasma calcium measurement (mass/volume)2019-12-31 04:35:00* Test Item Value Reference Range Interpretation Comments Calcium Level (test code = 68836-6) 7.8 8.4-10.[address] [facility] [facility] or plasma total bilirubin measurement (mass/volume)2019-12-31 04:35:00* Test Item Value Reference Range Interpretation Comments Total Bilirubin (test code = 1975-2) 0.4 0.2-1.2 [facility] SouthFluoroscopic procedure less than one hour zsdiyqes2968-38-80 04:35:00* Test Item Value Reference Range Interpretation Comments Aspartate Amino Transf (AST/SGOT) (test code = Aspartate Amino Transf (AST/SGOT)) 19 5-[address] [facility] or plasma alanine aminotransferase measurement (enzymatic activity/volume)2019-12-31 04:35:00* Test Item Value Reference Range Interpretation Comments Alanine Aminotransferase (ALT/SGPT) (test code = 1742-6) 20 0-[address] or plasma protein measurement (mass/volume)2019-12-31 04:35:00* Test Item Value Reference Range Interpretation Comments Total Protein (test code = 2885-2) 5.8 6.5-8.[address] [facility] or plasma albumin measurement (mass/volume)2019-12-31 04:35:00* Test Item Value Reference Range Interpretation Comments Albumin (test code = 1751-7) 3.0 3.5-5.0 [facility]asma globulin measurement (mass/volume) 2019-12-31 04:35:00* Test Item Value Reference Range Interpretation Comments Globulin (test code = 29248-3) 2.8 2.3-3.[address] [facility] or plasma albumin/globulin mass azgmd0991-54-09 04:35:00* Test Item Value Reference Range Interpretation Comments Albumin/Globulin Ratio (test code = 1759-0) 1.1 0.8-2.[address] or plasma alkaline phosphatase measurement (enzymatic activity/volume)2019-12-31 04:35:00* Test Item Value Reference Range Interpretation Comments Alkaline Phosphatase (test code = 6768-6) 42 40-150 [facility] SouthTroponin I measurement by highly sensitive enzyme jpcogxsmula9092-43-50 04:35:00* Test Item Value Reference Range Interpretation Comments Troponin I (test code = 11071-3) 0.173 0-0.[address] [facility] or plasma thyrotropin measurement by detection limit <= 0.005 miu/l (units/volume)2019-12-30 04:48:00* Test Item Value Reference Range Interpretation Comments Thyroid Stimulating Hormone (TSH) (test code = 57646-9) 1.072 0.350-4.[address] [facility] or plasma creatine kinase measurement (enzymatic activity/volume)2019-12-29 08:05:00* Test Item Value Reference Range Interpretation Comments Creatine Kinase (test code = 2157-6) 47 30-[address] [facility] or plasma creatine kinase MB measurement (mass/volume)2019-12-29 08:05:00* Test Item Value Reference Range Interpretation Comments Creatine Kinase MB (test code = 57441-8) 3.40 0-5.[address] or plasma triglyceride measurement (mass/volume)2019-12-29 05:05:00* Test Item Value Reference Range Interpretation Comments Triglycerides Level (test code = 2571-8) 74 0-[address] or plasma cholesterol measurement (mass/volume)2019-12-29 05:05:00* Test Item Value Reference Range Interpretation Comments Cholesterol Level (test code = 2093-3) 178 0-199 Less than 200 mg/dL Low Icma441 - 239 mg/dL Borderline Lows857 m g/dl and greater High Risk [facility] plasma cholesterol in LDL measurement (mass/volume) 2019-12-29 05:05:00* Test Item Value Reference Range Interpretation Comments LDL Cholesterol (test code = 2089-1) 126 60-[address] [facility] or plasma cholesterol in HDL measurement (mass/volume)2019-12-29 05:05:00* Test Item Value Reference Range Interpretation Comments HDL Cholesterol (test code = 2085-9) 37 40-[address] or plasma total cholesterol/cholesterol in HDL mass rggoq3154-21-96 05:05:00* Test Item Value Reference Range Interpretation Comments Cholesterol/HDL Ratio (test code = 9830-1) 4.8 3.9-4.7 [facility]CT CHEST Z0138-07-12 14:27:00 [facility] [address] [place] [address] Patient Name: JOSUE VENCES MR #: [id number] : 1950 Age/Sex: 69/M Req #: [id number] Adm Physician: JIE PISANO MD Ordered by: YOVANY BENNETT MD Report #: [id number] Location: [facility] Room/Bed: [place] [address] Procedure: [id number] CT/CT CHEST W E xam Date: 12/28/19 Exam Time: 1400 REPORT STATUS: Signed EXAM: CT Chest WITH contrast - Pulmonary Embolism Protocol INDICATION: Shortness of breath, syncope COMPARISON: Chest radiograph of 05/16/2019 TECHNIQUE: Chest was scanned u tilizing a multidetector helical scanner from the lung apex through the level of the diaphragm after administration of IV contrast. Thin section reconstruct ions were obtained with special concentration on the pulmonary arteries. Coron al and sagittal reformations were obtained. Pulmonary embolism protocol was pe rformed. IV CONTRAST: 100 cc of Isovue 370 RADIATION D OSE: Total DLP: 549.5 mGy*cm Dose modulation, iterative reconst ruction, and/or weight based adjustment of the mA/kV was utilized to reduce th e radiation dose to as low as reasonably achievable. COMPLICA TIONS: None FINDINGS: LINES/ TUBES: None. PULMONARY ARTERIES: No filling defect is identified within the pulmonary arteries and their branches. Main pulmonary artery measures 2.0 cm in diameter. No right heart strain. LUNGS AND AIRWAYS: The central airways are patent. No focal consolidation or pulmonary edema. PLEURA: The pleural spaces are clear. HEART AND MEDI ASTINUM: The thyroid gland is normal. No mediastinal, hilar or axillary lymph adenopathy. The heart is normal in size.. There is no pericardial effusion. M inimal scattered aortic and coronary artery atherosclerotic calcifications. UPPER ABDOMEN: No acute findings in the upper abdomen BONES: No acute osseous injury. No suspicious lytic or blastic lesions. Partially visualized c ervical spine fusion hardware. SOFT TISSUES: Unremarkable. IMPRESSION: No acute findings in the thorax. Specifically, no pulmonary embolism. S igned by: Filemon Malone MD on 12/28/2019 2:32 PM Dictated By: FILEMON MALONE MD 1432 Transcribed By: SELVIN CARSON on 12/28/19 1432 COPY TO: YOVANY BENNETT MD CT BRAIN WO 2019-12-28 14:25:00 [place] [id number] [place] [address] Patient Name: JOSUE VENCES MR #: [id number] : 1950 Age/Sex: 69/M Req #: [id number] Adm Physician: JIE PISANO MD Ordered by: YOVANY BENNETT MD Report #: [id number] Location: [facility] Room/Bed: [place] [address] Procedure: [id number] CT/CT BRAIN WO Exam Date: 12/28/19 Exam Time: 1400 REPORT STATUS: Signed CT BRAIN WO HISTORY: S yncope COMPARISON: Head CT 07/22/2016 Technique: Noncontrast axial scans were obtained from skull base to the vertex. Coronal and sagittal recon structions obtained from the axial data. One or more of the following dose re duction techniques were used: Automated exposure control, adjustment of the mA and/or kV according to patient size, and/or utilization of iterative reconstr uction technique. DISCUSSION: Scalp/Skull: Small linear subcutaneous h yperdensity is seen in the right temporal scalp. Otherwise, unremarkable. Br ain sulci: Mildly prominent. Ventricles: Compensatory dilatation. Extra-axia l spaces: No masses or fluid collections. Carotid siphon calcifications are pr esent. Parenchyma: No abnormal densities. No masses, hemorrhage, or larg e vascular territory acute infarct. Dural sinuses: No abnormal densities . Sellar/Suprasellar region: Intact. Skull base: Intact. Incidental findin gs: None. IMPRESSION: 1. No acute intracranial abnormalities. 2. Mild generalized cerebral volume loss. Signed by: Jerad Ventura 12/28/2019 2:29 PM Dictated By: KHARI FRYE MD Electronically Sign ed By: KHARI FRYE MD on 12/28/191428 Transcribed By: KHALIF on 12/28/191428 COPY TO: YOVANY BENNETT MD Fluoroscopic procedure less than one hour [id number] 12:44:00* Test Item Value Reference Range Interpretation Comments Coronavirus (PCR) (test code = Coronavirus (PCR)) NOT DETECTED NOTD ETECTED Hologic Aptima SARS-CoV-2 assay is a nucleic amplification test intended for the qualitative detection of RNA from SARS-CoV-2 from nasopharyngeal (PROCESS CHEESE [employer]OOKER) specimens . It is used under Emergency Use Authorization (EUA) by FDA.A positive result is indicative of the presence of SARS-CoV-2 RNA. Clinical correlation with patient history and other diagnostic information is necessary to determine patient infe ction status.A negative (Not Detected) result does not preclude SARS-CoV-2 infec tion. Clinical Correlation with patient history and other diagnostic information should be used in patient management decisions.Invalid: Unable to generate a va lid result on this specimen. Please submit a new specimen for reprat testing oc clinically indicated.Tesing performed by:[facility] [id number] [place] [address] [id number], Cruz Bowers MD, PhD [facility] SouthProthrombin time (PT) in platelet poor plasma by coagulation [id number] 11:37:00* Test Item Value Reference Range Interpretation Comments Prothrombin Time (test code = 5902-2) 12.7 11.9-14.5 [facility]R in Platelet poor plasma by Coagulation [id number] 11:37:00* Test Item Value Reference Range Interpretation Comments Prothromb Time International Ratio (test code = 6301-6) 0.91 Oral Anticoagulant Therapy INR Values:1. Low Intensity Therapy 1.5 - 2.02 . Moderate Intensity Therapy 2.0 - 3.03. High Intensity Therapy(1) 2.5 - 3. 54. High Intensity Therapy(2) 3.0 - 4.05. Panic Value INR > 5.0 [facility]Fibr[facility] D-dimer DDU measurement in platelet poor plasma (mass/volume)2019-12-28 11:37:00* Test Item Value Reference Range Interpretation Comments D-Dimer Quantitative (PE/DVT) (test code = 35870-7) 2310 0- 400 The Triage D-Dimer Test has not been evaluated for use as sole evidence for the presence or absence of PE or DVT. As with all in vitro diagnostic tests, the te st results should be interpreted by the physician in conjunction with clinical f indings and other test results.Test results are reported in D-dimer units.[facility] plasma magnesium measurement (mass/volume)2019-12-28 11:37:00* Test Item Value Reference Range Interpretation Comments Magnesium Level (test code = 17567-0) 2.6 1.3-2.1 [facility] SouthBNP Bta-yTsa3035-67-21 11:37:00* Test Item Value Reference Range Interpretation Comments B-Type Natriuretic Peptide (test code = 27279-1) 11.0 0-100 [facility]ST 2 [id number] 12:37:00 [facility] [address] [place] [address] Patient Name: JOSUE VENCES MR #: [id number] : 1950 Age/Sex: 69/M Req #: [id number] Adm Physician: Ordered by: KAREN DILL DPRashid Report #: [id number] Location: OR Room/Bed: Procedure: [id number] DX/ CHEST 2 VIEWS Exam Date: 05/16/19 Exam Time: 1110 REPORT STATUS: Signed Chest, PA an d lateral. History: Preoperative evaluation for foot surgery. Comparis on: None available. Discussion: The cardiomediastinal silhouette and pulmo nary vasculature are within normal limits. The lungs are clear without evidenc e of consolidation or effusion. There are no acute osseous abnormalities. Pat ient is status post ACDF. IMPRESSION: No acute cardiopulmonary abnorma lity. Signed by: Jim Milner MD on 05/16/2019 12:38 PM Dictated By: JIM MILNER MD 1238 COPY TO: BRUCE DILL DPM MRI FEMUR LEFT [id number] 09:31:00 [place] [address] Patient Name: JOSUE VENCES MR #: [id number] : 1950 Age/Sex: 68/M Req #: [id number] Adm Physician: Ordered by: LEENA ZULUAGA DO Report #: [id number] Location: MRI Room/Bed: Procedure: [id number] MR I/MRI FEMUR LEFT WO Exam Date: Exam Time: REPORT STATUS: Signed MRI of the righ t femur without contrast. MRI of the left femur without contrast Histo ry: Right and left hamstring muscle strain. Trauma. Pain worse with running. Decreased range of motion Technique: Multiplanar multisequence MRI of the r ight femur. Multiplanar multisequence MRI of the left femur. Comparison: None Findings: Mild right insertional hamstring tendinosis with minimal ad jacent hamstring muscular edema likely due to a mild right and left hamstring muscle strain. No full-thickness tear or retraction. The remainder of the visualized muscles are normal in size, signal intensity and morphology. No acute fracture, subluxation or avascular necrosis. Scattered degenerativ e change. The visualized neurovascular bundles are intact. Impression: Mild right insertional hamstring tendinosis with minimal adjacent hamstring muscular edema likely due to a mild right and left hamstring muscle strain. No full-thickness tear or retraction. Signed by: Dr. Jose A Fernandez M.D. on 04/16/2019 10:23 AM Dictated By: JOSE A FERNANDEZ MD, MD Electronically Sign ed By: JOSE A FERNANDEZ MD, MD on 04/16/19 1023 Transcribed By: KHALIF on 04/16/19 1023 COPY TO: LEENA ZULUAGA DO MRI FEMUR RIGHT [id number] 09:31:00 [place] [address] Patient Name: JOSUE VENCES MR #: [id number] : 1950 Age/Sex: 68/M Req #: [id number] Adm Physician: Ordered by: LEENA ZULUAGA DO Report #: [id number] Location: MRI Room/Bed: Procedure: [id number] MR I/MRI FEMUR RIGHT WO Exam Date: Exam Time: REPORT STATUS: Signed MRI of the rig ht femur without contrast. MRI of the left femur without contrast Hist ory: Right and left hamstring muscle strain. Trauma. Pain worse with running. Decreased range of motion Technique: Multiplanar multisequence MRI of the right femur. Multiplanar multisequence MRI of the left femur. Comparison: None Findings: Mild right insertional hamstring tendinosis with minimal a djacent hamstring muscular edema likely due to a mild right and left hamstring muscle strain. No full-thickness tear or retraction. The remainder of th e visualized muscles are normal in size, signal intensity and morphology. No acute fracture, subluxation or avascular necrosis. Scattered degenerati ve change. The visualized neurovascular bundles are intact. Impression : Mild right insertional hamstring tendinosis with minimal adjacent hamstring muscular edema likely due to a mild right and left hamstring muscle strain. No full-thickness tear or retraction. Signed by: Jerad Dolan 04/16/2019 10:23 AM Dictated By: JOSE A FERNANDEZ MD, MD Electronically Sig devante By: JOSE A FERNANDEZ MD, MD on 04/16/19 1023 Transcribed By: KHALIF on 9 1023 COPY TO: LEENA ZULUAGA DO
== END 2020-01-12 20:40 | disposition home or self-care (01) ==
LOC: ER 20:35
DX: T80.1XXA Vascular complications following infusion, transfusion and therapeutic injection, initial encounter (principal); E03.9 Hypothyroidism, unspecified; G47.00 Insomnia, unspecified; Z95.1 Presence of aortocoronary bypass graft
CPT/HCPCS: 99282

== ENCOUNTER → 2020-10-29 | Outpatient (CLI) | payer MEDICARE ==
[~2020-10-29] MED LIST changes: +ACIDOPHILUS1 EAC1 PO; +CLINDAMYCIN HC300 MG PO
== END ==
LOC: RAD 10:03
PROVIDERS: ATTEND Family Medicine
DX: R05 Cough (principal)
CPT/HCPCS: 71046

== ENCOUNTER → 2021-12-17 | Outpatient (CLI) | payer MEDICARE | LOC: RAD 09:48 | PROVIDERS: ATTEND Family Medicine | DX: M54.2 Cervicalgia (principal) | CPT/HCPCS: 72040 ==